=== PATIENT | male | born 1955 | race Caucasian/White ===

== ENCOUNTER 2018-09-15 08:15 | Emergency (ER) | payer BC, SELFPAY ==
[2018-09-15 08:25] VITALS: BP 154/91; PULSE 68; RESP 16; TEMP 36.7; O2SAT 95
--- NOTE | 2018-09-15 08:54 | W.ED.GENAD ---
Discharge Plan Disposition Patient Disposition: HOME Discharge Details Chief Complaint: Laceration Clinical Impression: Laceration of lower lip Primary Care Provider: Aleks Gunderson ED Provider: Casper King Home Meds and New Rx's Prescriptions: New cephalexin 500 mg tablet 500 mg PO TID Qty: 9 RF: 0 Discharge Instructions Instructions: Facial Laceration (ED) Additional Instructions: Keep wound protected. Allow mucosal sutures to dissolve. Return to the ED or see your doctor in 6 days for removal of two skin sutures. Please contact your primary care physician to arrange follow-up. Return to the ER for any worsening or new concerning symptoms. Referrals: Aleks Gunderson MD [Primary Care Provider] - Medical Decision Making 9:10 -- 63-year-old male here with laceration to his right lower lip that crosses vermilion border. Plan for primary closure after irrigation and wound exploration. Outside hospital medical records were reviewed from primary care office: tetanus is up-to-date. 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 He does note no gross contamination. Plan to cover with 3 days of cephalexin. 10:30 --wound was extensively irrigated with copious sterile saline and wound explored. Deep structures intact and no foreign body present. Patient seem to have a through and through laceration that involved the corner of right lower lip crossing the vermilion border extending into inner cheek. Laceration inside mouth was repaired with #2 absorbable sutures. The mucosal membrane of the lip was reapproximated with #4 absorbable sutures. Skin laceration was repaired with #2 prolene sutures. Wound borders reapproximated. Hemostasis achieved. Usual and customary discharge instructions were provided. HPI General Mode of arrival: ambulatory. Date/Time Provider Initiated Documentation: 09/15/18 08:46. Limitations to Documentation: no limitations. Information obtained by: patient. HPI Narrative: 63yo m with no medical problems presents with chief complaint of laceration. Patient notes that he was hammering some metal and a shard of steel metal impacted his right lower lip resulting in laceration. This occurred just prior to arrival. Laceration initially was bleeding. Bleeding is stopped. Laceration is deep. No modifiers. No associated pain. No loose teeth. He removed the entire shard that was intact. Tetanus is utd. Related Data Home Medications Medication Instructions Recorded Confirmed cephalexin 500 mg PO TID #9 tab 09/15/18 Previous Rx's Medication Instructions Recorded cephalexin 500 mg PO TID #9 tab 09/15/18 Allergies Allergy/AdvReac Type Severity Reaction Status Date / Time No Known Allergies Allergy Unverified 09/15/18 08:28 General Stated Complaint: Laceration SHERRY: 4 Review of Systems ENT Reports as per HPI Integumentary/Breasts Reports as per [facility] Social History Smoking/Tobacco Use Status: Never Exam Const General: cooperative and no acute distress HENMT Head: normocephalic and atraumatic Face and sinus: no tenderness Mouth: other (laceration to right lower lip that crosses shania border) Mouth/tongue images: 1. deep 2cm laceration Teeth and gingiva: dentition normal Eyes Conjunctivae: normal conjunctivae Sclera: normal sclerae EOM: EOM intact bilaterally Neck Neck: trachea midline and supple Skin General skin exam: no rashes or lesions noted Neuro General: alert, awake, oriented x3 and tone normal Course Vital Signs Temperature 36.7 C 09/15/18 08:25 Pulse 68 09/15/18 08:25 Respiratory Rate 16 09/15/18 08:25 Blood Pressure 154/91 H 09/15/18 08:25 Pulse Oximetry 95 09/15/18 08:25 Temperature 36.7 C 09/15/18 08:25 Temperature Source Skin 09/15/18 08:25 Pulse 68 09/15/18 08:25 Respiratory Rate 16 09/15/18 08:25 Respiratory Effort 09/15/18 08:25 Blood Pressure 154/91 H 09/15/18 08:25 Blood Pressure Position Sitting 09/15/18 08:25 Pulse Oximetry 95 09/15/18 08:25 Pain Level 1 09/15/18 08:25 Procedures Laceration Laceration 1: Site: lip Side (If applicable): right Size (cm): 2 Description: linear, irregular, clean and involves shania border Depth: simple, single layer Local Anesthetic: Bupivicaine 0.25% and with Epi Amount of anesthesia used (mL): 2 Pre-repair: wound explored, irrigated extensively and deep structures intact Skin layer closed with: vicryl (6) and other (prolene) Size (cm): 6-0 Number of sutures: 2 Technique: simple, interrupted
[2018-09-15] MEDS: Cephalexin 500 MG CAP PO (11:00)
[2018-09-15 11:20] VITALS: PULSE 77; RESP 17; TEMP 36.8
== END 2018-09-15 11:30 | disposition home or self-care (01) ==
PROVIDERS: Emergency Provider Student in an Organized Health Care Education/Training Program; PCP Internal Medicine
DX: S01.511A Laceration without foreign body of lip, initial encounter (principal); W30.89XA Contact with other specified agricultural machinery, initial encounter; Y92.71 Barn as the place of occurrence of the external cause
CPT/HCPCS: 12011

== ENCOUNTER 2018-09-21 09:37 | Emergency (ER) | payer BC, SELFPAY ==
[2018-09-21 09:40] VITALS: BP 145/79; PULSE 79; RESP 12; TEMP 36.5; O2SAT 97
--- NOTE | 2018-09-21 09:50 | ED.GENADUL_ITS ---
Discharge Plan Disposition Patient Disposition: HOME Condition: Good Discharge Details Chief Complaint: SutureRem Clinical Impression: Visit for suture removal Primary Care Provider: Aleks Gunderson ED Provider: Jose Diane Home Meds and New Rx's Prescriptions: No Action cephalexin 500 mg tablet 500 mg PO TID Qty: 9 RF: 0 Discharge Instructions Instructions: Stitches Removal (ED) Additional Instructions: If you notice any redness, discharge, fever, or splitting of the skin, please return immediately. Referrals: Aleks Gunderson MD [Primary Care Provider] - Medical Decision Making This is a 63-year-old male who presents for suture removal. He had 2 simple interrupted nylon absorbable sutures to his right lower lip. Excellent wound edge healing, good wound edge reapproximation, no evidence of discharge or redness. 2 sutures were removed without complication. Patient will be discharged home with close follow-up. I have extensively reviewed the treatment plan and discharge instructions with the patient. I have addressed all patient concerns at this time. The patient was made aware of what symptoms to monitor for that would warrant a return to the emergency department. Discussed the plan with the patient, they demonstrate verbal understanding and agreement with our assessment and plan at this time. HPI General Date/Time Provider Initiated Documentation: 09/21/18 09:40 . HPI Narrative: This is a 63-year-old male who presents for suture removal. 1 week ago a fragment of metal cut his right lower lip. He received 2 simple interrupted sutures nonabsorbable on the outside and 4 absorbable sutures on the inside. He is presented here for removal. He has had no associated redness, dehiscence, fever, chills or drainage. He has no other complaints. Related Data Home Medications Medication Instructions Recorded Confirmed cephalexin 500 mg PO TID #9 tab 09/15/18 Previous Rx's Medication Instructions Recorded cephalexin 500 mg PO TID #9 tab 09/15/18 Allergies Allergy/AdvReac Type Severity Reaction Status Date / Time No Known Allergies Allergy Unverified 09/15/18 08:28 General Stated Complaint: SutureRem SHERRY: 5 Review of Systems Review of Systems All systems reviewed & are unremarkable except as noted in HPI and below PFSH Social History Smoking/Tobacco Use Status: Never Exam Narrative Exam Narrative: 1.Const: Well-nourished, Well-developed, appearing stated age 2.Eyes: PERRL, no conjunctival injection, and symmetrical lids. 3.ENT: Atraumatic external nose and ears. Moist MM. Neck: Symmetric, trachea midline, No thyromegaly. 4.CVS: +S1/S2, No murmurs or gallops. Peripheral pulses 2+ and equal in all extremities. Brisk capillary refill in all extremities. 5.RESP: Unlabored respiratory effort. Clear to auscultation bilaterally. No wheezes rales or rhonchi 6.GI: Soft, Nontender/Nondistended, No hepatosplenomegaly. No guarding or rebound. 7.MSK: Normocephalic/Atraumatic, Extremities w/o deformity or ttp No cyanosis or clubbing, Normal movement of all extremities 8.Skin: Warm, Dry. No rashes or lesions. Patient has 2 simple interrupted sutures that are located externally on the lower lip on the right. Good wound edge reapproximation, excellent healing. The 4 absorbable sutures have fallen out and there is excellent mucosal healing 9.Neuro: home improvement advisor II-XII grossly intact. Sensation grossly intact, no focal neurologic deficits. 10.Psych: (AAO) x3. Appropriate mood and affect Course Vital Signs Temperature 36.5 C 09/21/18 09:40 Pulse 79 09/21/18 09:40 Respiratory Rate 12 09/21/18 09:40 Blood Pressure 145/79 H 09/21/18 09:40 Pulse Oximetry 97 09/21/18 09:40 Temperature 36.5 C 09/21/18 09:40 Temperature Source Temporal Artery Scan 09/21/18 09:40 Pulse 79 09/21/18 09:40 Respiratory Rate 12 09/21/18 09:40 Respiratory Effort Non-Labored 09/21/18 09:42 Blood Pressure 145/79 H 09/21/18 09:40 Blood Pressure Position Sitting 09/21/18 09:40 Pulse Oximetry 97 09/21/18 09:40 Oxygen Delivery Method Room Air 09/21/18 09:40 Oxygen Flow Rate 0 09/21/18 09:40 Pain Level 0 09/21/18 09:40
== END 2018-09-21 09:50 | disposition home or self-care (01) ==
LOC: ER 09:59
PROVIDERS: Emergency Provider Student in an Organized Health Care Education/Training Program; PCP Internal Medicine
DX: S01.511D Laceration without foreign body of lip, subsequent encounter (principal); W30.89XD Contact with other specified agricultural machinery, subsequent encounter; Z48.02 Encounter for removal of sutures

== ENCOUNTER 2019-01-15 10:42 | Outpatient (REF) | payer BC, SELFPAY ==
[2019-01-16 11:53] LABS: HSV 1 DNA Result Negative; HSV 2 DNA Result Negative
== END 2019-01-15 11:02 ==
LOC: NCHCN 10:42
PROVIDERS: PCP Specialist/Technologist Athletic Trainer; Visit Provider Specialist/Technologist Athletic Trainer
DX: L03.019 Cellulitis of unspecified finger (principal); Z11.59 Encounter for screening for other viral diseases
CPT/HCPCS: 87529; 86695; 86696

== ENCOUNTER 2020-09-20 13:52 | Outpatient (REF) | payer BC, SELFPAY ==
[2020-09-20 20:44] LABS: Calculated LDL 111 mg/dL (<100); Cholesterol 199 mg/dL (<200); HDL Cholesterol 59 mg/dL (40-60); Triglyceride 149 mg/dL (<150)
== END 2020-09-20 14:12 ==
LOC: NCHCN 13:52
PROVIDERS: PCP Specialist/Technologist Athletic Trainer; Visit Provider Nurse Practitioner Family
DX: Z00.00 Encounter for general adult medical examination without abnormal findings (principal); R05 Cough; R03.0 Elevated blood-pressure reading, without diagnosis of hypertension; Z13.220 Encounter for screening for lipoid disorders
CPT/HCPCS: 80061

== ENCOUNTER 2020-11-12 08:14 | Day surgery (SDC) | payer BC, SELFPAY ==
[2020-11-12 08:41] VITALS: BP 139/88; PULSE 65; RESP 16; TEMP 36.3; O2SAT 98
[2020-11-12] MEDS: Lactated Ringers 1,000 ML 80 ML IV (08:48)
--- NOTE | 2020-11-12 09:05 | BOWEL_PTH ---
PATIENT: Tyron Dodge LOC: [facility] U#:[id number] AGE/SX: 65/M ROOM: RE11/12/[address]: Shonna Maurer : 1955 BED: DIS: 11/12/2020 SPEC #: [id number] RECD: 11/12/20 12:25 STATUS: OSCAR RETee #: [id number] ALONZO: 11/12/20 09:[address]: Shonna Maurer DEPT: Surgical Specimen RECD BY: Jennifer Nicole ENTERED: 11/12/20 12:25 SP TYPE: Bowel OTHR DR: Aleks Gunderson Tissues: 1 - BIOPSY BOWEL Procedures: GROSS AND MICRO LEVEL 4 Comments: [id number]
--- NOTE | 2020-11-12 09:51 | W.COLOREPORT ---
Date of service: 11/12/20 Time of Service: 09:52 Colonoscopy Report Date of procedure: 11/17/20 Pre-op diagnosis general: CRC screen Post-op diagnosis procedure note: other (polyps) Surgeon: Shonna Maurer Anesthesia proc note operative: GETA Pathology: other Complications: None Disposition: same day Prep: Miralax/Dulcolax Retraction Time: 15 mins Procedure Description: After informed consent was obtained the patient was taken to the procedure room and placed in a left decubitous position. Monitors were applied and a time out was done. The patients name, date of , procedure, allergies to medications and metal in their body was reviewed. The patient was then sedated. Once sedated and comfortable a rectal exam was done. External exam was normal. Internal exam revealed a normal sphincter tone and no palpable masses. The scope was then introduced and retrofelexed. No internal hemorrhoids were identified. The scope was then advanced to the cecum w/out difficulty. The TI and appendiceal orifice were identified. The prep was good. The scope was then slowly retracted over 15 mins minutes back into the rectum. Polyps x2 were removed in rectum .75cm each. Removed w/ x2 bites of cold biter. There are no AVM's or diverticula. The scope was removed and the patient was woken up and taken back to Same day surgery in stable condition. The patient tolerated the procedure well and there were no immediate complications. Follow up: The patient should follow up in 5-7 years, path pd, unless they develop changes in bowel habits or other new gastrointestinal complaints.
[2020-11-12 09:53] VITALS: BP 134/86; PULSE 69; RESP 16; TEMP 36.2; O2SAT 99
--- NOTE | 2020-11-12 10:05 | W.PM.DSUDISC ---
Discharge Plan Disposition Patient Disposition: HOME Condition: Good Discharge Details Reason For Visit: colo Attending Provider: Shonna Maurer Primary Care Provider: Aleks Gunderson Home Meds and New Rx's Prescriptions: Discontinued polyethylene glycol 3350 17 gram/dose powder 238 g PO ONCE Qty: 238 RF: 0 bisacodyl [Dulcolax (bisacodyl)] 5 mg tablet,delayed release (DR/EC) 5 mg PO ONCE Qty: 4 RF: 0 ibuprofen 200 mg capsule 400 mg PO Q6H PRNRF: 0 Discharge Instructions Instructions: Colorectal Polyps (GEN) Additional Instructions: Findings: x2 polyps Follow up:repeat in 5-7yrs will send a letter in approx 3 wks w/ results of the patholgy and when to repeat the scope. Please call if you develop: fevers >101.5 Nausea or Vomiting Abdominal pain that is not transient DAY SURGERY UNIT POST COLONOSCOPY INSTRUCTIONS 1. Because there will be medication in your system for the next 24 hours, you may feel a little sleepy. Your coordination will be affected. Therefore: a. Do not drive or operate dangerous equipment for 24 hours. b. Do not drink alcohol beverages for 24 hours (not even beer). c. Plan to go home and rest for the day. 2. Generally there are no restrictions on your activity after a day or so has gone by, but you may feel a bit fatigued for a few days. 3 After you arrive home you may have a light meal and return to a normal diet as you can tolerate it without feeling sick to your stomach. 4. After surgery, you may feel pain or discomfort. This should be only transient, but if it persists please contact your doctor. 5. If there are any questions regarding the findings of your procedure, please feel free to contact your doctor. 6. If you are unable to contact your doctor with a problem, contact the hospital at [phone]. 7. Continue all your regular medications unless directed otherwise. I understand the above instructions and have no questions. Signature of Patient or Responsible Adult Escort Date/Time Name of Responsible Adult Escort Signature of Nurse Date/Time Activity:: No lifting over 20 pounds or strenuous activity x24 hours. Diet:: Small light meals x24 hours Discharge Orders Discharge Orders: Discharge Order (Routine); Ordered 11/12/20 Ordered By: Shonna Maurer DS: Diagnosis Discharge Diagnosis (1) Adenomatous polyps: Status: Acute
== END 2020-11-12 10:38 | disposition home or self-care (01) ==
PROVIDERS: PCP Internal Medicine; Visit Provider Surgery
PROC: 0DJD8ZZ Inspection of Lower Intestinal Tract, Via Natural or Artificial Opening Endoscopic (ICD-10-PCS; CPT 45378; principal; 2020-11-12 09:00)
DX: Z12.11 Encounter for screening for malignant neoplasm of colon (principal); K62.1 Rectal polyp
CPT/HCPCS: 45380; 88305; J2001

== ENCOUNTER 2021-05-13 14:33 | Outpatient (REF) | payer BC, SELFPAY ==
[2021-05-15 12:53] LABS: COVID-19 RT-PCR UVMMC Result Negative (Negative)
== END 2021-05-13 14:34 | disposition home or self-care (01) ==
LOC: NCHCN 14:33
PROVIDERS: PCP Internal Medicine; Visit Provider Nurse Practitioner Family
DX: Z20.822 Contact with and (suspected) exposure to COVID-19 (principal)
CPT/HCPCS: U0003

== ENCOUNTER → 2022-07-17 14:00 | Outpatient (BNVA) | payer MEDICARE, BC, SELFPAY | PROVIDERS: PCP Nurse Practitioner Family; Referring Provider Nurse Practitioner Family; Visit Provider Nurse Practitioner Adult Health | DX: G56.01 Carpal tunnel syndrome, right upper limb (principal) | CPT/HCPCS: 95908; 99203; 99213 ==

== ENCOUNTER → 2022-09-14 14:22 | Outpatient (BNVA) | payer MEDICARE, BC, SELFPAY | PROVIDERS: PCP Nurse Practitioner Family; Referring Provider Nurse Practitioner Family; Visit Provider Student in an Organized Health Care Education/Training Program | DX: G56.01 Carpal tunnel syndrome, right upper limb (principal) | CPT/HCPCS: 99213 ==

== ENCOUNTER 2022-09-20 08:54 | Day surgery (SDC) | payer MEDICARE, BC, SELFPAY ==
--- NOTE | 2022-09-20 08:20 | ANES.PREOP_ITS ---
General Info Date of Service Date Performed: 09/20/22 Height: 5 ft 8 in Weight: 74 kg Body Mass Index (BMI): 24.7 Surgical Procedure: Operation Date: 09/20/22 11:10 Proposed Procedure Side Surgeon p Wrist ECTR Right Ryland Vallecillo MD Meds Allergies and Home Medications Allergies Allergy/AdvReac Type Severity Reaction Status Date / Time fluticasone Allergy Mild Hives Verified 09/20/22 09:30 Home Medication Medication Instructions Recorded Unknown [No Known Home Meds] 07/17/22 Current Visit Medications: Current Medications Generic Name Dose Route Start Last Admin Trade Name Freq PRN Reason Stop Dose Admin Ringer's Solution 1,000 mls @ 80 mls/hr 09/20/22 06:00 IV 10/19/22 23:59 INFUSION GAVIOTA Cefazolin Sodium/Dextrose 2 gm in 50 mls @ 100 mls/hr 09/20/22 06:00 Ancef Duplex IVPB 10/19/22 23:59 PREOP GAVIOTA IV Miscellaneous Supplies 1 each 09/20/22 06:00 Iv Access IV 10/19/22 23:59 DIRECTED GAVIOTA Sodium Chloride 0 ml 09/20/22 06:00 Normal Saline Flush 10 Ml Syr IV 10/19/22 23:59 PRN PRN Sodium Chloride 0 ml 09/20/22 06:00 Normal Saline 10 Ml Vial IJ 10/19/22 23:59 DIRECTED PRN Sterile Water 0 ml 09/20/22 06:00 Water,Injection,Sterile 10 Ml Vial IJ 10/19/22 23:59 DIRECTED PRN PFSH Active Problems Active Problems: Problem Status Onset Code Right carpal tunnel syndrome G56.01 Colon polyp, hyperplastic ~10/2020 K63.5 Adenomatous polyps D36.9 Medical History Medical History Actinic keratosis Carpal tunnel syndrome Cerumen impaction Chronic cough Hip pain, right Hypertension Swelling of right ring finger Surgical History Surgical History History of carpal tunnel release left History of colonoscopy (~07/07/10) History of colonoscopy (~11/12/20) Tobacco Smoking/Tobacco Use Status: Never Alcohol Alcohol Intake: current Alcohol intake frequency: holidays/special occasions o nly Substance Use Substance use: Never Substance use type: does not use Vital Signs and Lab Results Vital Signs Most Recent Vital Signs in EMR: Temp Pulse Resp BP Pulse Ox 36.5 C 68 16 136/86 100 09/20/22 09:15 09/20/22 09:15 09/20/22 09:15 09/20/22 09:15 09/20/22 09:15 Lab Results Blood Type / Crossmatch: No Data to Display Complete Blood Count: No Data to Display Complete Metabolic Panel: No Data to Display Liver Function Panel: No Data to Display Coagulation Panel: No Data to Display Cardiac Panel: No Data to Display Arterial Blood Gas: No Data to Display Venous Blood Gas: No Data to Display Pancreas Panel: No Data to Display Thyroid Panel: No Data to Display Infectious Disease: No Data to Display Blood Cultures: No Data to Display Toxicology Panel: No Data to Display Imaging and Studies Imaging and Studies Study information below may be from another EMR and interpreted by another provider. Please see original notes in EMR for more complete details. Pulmonary Function Summary: 05/02: borderline mild obstructive dz. Anesthesia Assessment and Plan Anesthesia History Personal History: No History of Anesthesia Complications Family History: No Family History of Anesthesia Complications Exercise Tolerance Exercise Tolerance: Metabolic Equivalents>4 Cardiac & Pulmonary Exam Cardiac Exam: Normal S1/S2 Heart Sounds Pulmonary Exam: Clear Bilateral Breath Sounds Implantable Cardiac Device Does patient have a Pacemaker or an ICD?: No Airway Exam Known Difficult Airway: No Mallampati Class: 3 Mouth Opening: Normal (> 3cm) Thyromental Distance: Greater than 3 cm Facial Hair: Full Millan Neck Range of Motion: Full ROM Neck Circumference: Normal Teeth Condition: Normal Dentition ASA Classification ASA Score: ASA 2 Emergency Case?: No NPO Status NPO Status: NPO Clears >2 hours, Solids >8 hours Anesthesia Plan Resuscitation Status: Full Code Anesthesia Technique: General Anesthesia Airway Planned: Natural Airway Monitors Used: Standard Monitors Preoperative Comments:: 67 yo male for ECTR. Sig PMHx: chronic cough, HTN (just being monitored, not on medications), never smoker, occ EtOH. Previous Anes: colo with prop, no issues.
[2022-09-20 09:15] VITALS: BP 136/86; PULSE 68; RESP 16; TEMP 36.5; O2SAT 100
[2022-09-20] MEDS: Lactated Ringers 1,000 ML 80 ML IV (09:25)
[2022-09-20 10:05] VITALS: BMI 24.7
[2022-09-20] MEDS: ceFAZolin 2 GM/50 ML BAG IVPB (10:59)
--- NOTE | 2022-09-20 11:09 | W.PM.DSUDISC ---
Date of service: 09/20/22 Time of Service: 11:10 Discharge Plan Disposition Patient Disposition: Home Condition: Good Discharge Details Reason For Visit: R ECTR Attending Provider: Ryland Vallecillo Primary Care Provider: Shanelle Gonzalez Home Meds and New Rx's Prescriptions: New acetaminophen 500 mg tablet 1,000 mg PO TID Qty: 90 0RF ibuprofen 600 mg tablet 600 mg PO TID PRN (Reason: pain) Qty: 90 0RF Discharge Instructions Stand Alone Forms: Avel Serra Tunnel Release Referrals: Ryland Vallecillo MD [ [facility] STAFF PHYSICIAN] - Activity:: Activity as Tolerated Remove Dressings/Wound Care:: 48 hours Shower/Bathe:: 48 hours Diet:: As Tolerated Discharge Orders Discharge Orders: Discharge Order (Routine); Ordered 09/20/22 Ordered By: Kwan Guzman DS: Diagnosis Discharge Diagnosis (1) Right carpal tunnel syndrome: Status: Acute
[2022-09-20] MEDS: Lidocaine 1% Pres-Free W/EPI 1/200,000 10 ML VIAL (11:15)
[2022-09-20 11:20] VITALS: BP 140/81; PULSE 65; RESP 16; TEMP 36.6; O2SAT 96
--- NOTE | 2022-09-20 11:26 | ROE_ITS ---
Date of service: 09/20/22 Time of Service: 11:20 Operative Note Operative Note DATE OF PROCEDURE: 09/20/22 PRE-OP DIAGNOSIS: Right Carpal Tunnel Syndrome POST-OP DIAGNOSIS: same PROCEDURE: Right Endoscopic Carpal Tunnel Release SURGEON: Ryland Vallecillo ANESTHESIA TYPE: General:No Airway Refer to Anesthesia Record ESTIMATED BLOOD LOSS: 0 PATHOLOGY: none sent TOURNIQUET TIME: 6 COMPLICATIONS: None Patient was transported to: same day Patient's condition: stable Indications: I have seen Tyron in clinic for symptoms of carpal tunnel syndrome. The numbness, tingling, and pain limited function. Clinical exam findings with nerve conduction tests confirmed the diagnosis of carpal tunnel syndrome. Nonoperative measures such as bracing, time, activity modifications had been tried but disability and pain persisted. I discussed carpal tunnel release with the patient. I reviewed the risks of the procedure to include, but not limited to, bleeding, infection, pain, stiffness, incomplete release, damage to nerves or vessels, persistent numbness, recurrence. Despite these risks, the patient elected to proceed. Findings: There was tightened carpal tunnel. This was dilated and released successfully with the endoscopic with increased space within the tunnel. The antebrachial fascia was released proximally freeing the median nerve at the wrist. Procedure Description: Tyron was greeted in the preoperative holding area where the correct side was identified and marked. The consent was reviewed with the patient and signed. The history and physical was updated. All questions were answered. He was taken back to the operating room. The patient was placed into the supine position on the operating room table with the right arm on an arm board. A nonsterile tourniquet was placed high onto the arm. All bony prominences were well padded. Prophylactic antibiotics in the form of Cefazolin were administered. The right arm was then prepped with Chloraprep and draped in a standard fashion with stockinette and extremity drape. A timeout to confirm correct identity, side and site, procedure, allergies, anesthesia, and medical concerns was performed. The surgical site was marked in the volar wrist creases in line with the radial border of the fourth ray. This area was anesthetized with approximately 6cc of 1% Lidocaine. The limb was then exsanguinated with an Esmarch. The skin was incised with a 15 blade, approximately 1cm. The skin only was cut and the deeper tissue was dissected bluntly with a tenotomy scissor, avoiding passing nerve and venous structures. The fascia was penetrated and opened bluntly. A two-prong skin hook was placed under this proximal fascial edge. A series of hamate finders were used to identify and dilate the carpal tunnel. Synovial elevator was used to free synovial attachments to the underside of the transverse carpal ligament. My thumb was kept in the palm to clint the distal extent of the carpal tunnel and correctly position the hand. The Microaire en doscope was inserted without difficulty and without resistance. Excellent visualization showed horizontally running fibers of the transverse carpal ligament (TCL). The distal extent of the TCL was visualized and the end of the scope palpated with the thumb. The blade was elevated and withdrawn from distal to proximal. The TCL was split into two flaps. The endoscope was reinserted to confirm complete release and any remnant ligament was incised. The scope was withdrawn and the proximal aspect of the carpal tunnel was grossly inspected and appeared release with the median nerve visible. The antebrachial fascia at the level of the wrist was then freed from the overlying skin and then the underlying median nerve with blunt dissection. This was transected longitudinally for about 3cm proximal to the wrist incision. The wound was then irrigated with easy flow of irrigant distally and proximally. The incision was closed with a single 4-0 Nylon suture. The wound was dressed with Xeroform, Gauze, Kerlix and Roberto. The tourniquet was deflated with the initial dressing and held with some pressure. Blood flow returned easily to all digits with capillary refill less than 2 seconds. The patient tolerated the procedure well and was returned to the Same Day Surgery area in a stable condition suffering no known complication.
[2022-09-20 11:50] VITALS: BP 149/85; PULSE 60; RESP 16; TEMP 36.4; O2SAT 98
--- NOTE | 2022-09-20 13:17 | W.ANESPOSTOP ---
Postoperative Evaluation Date, Time and Location Date Performed: 09/20/22 Time Performed: 12:12 Patient Location: Day Surgery Unit Vital Signs Most Recent Imported Vital Signs: Most Recent Vital Signs Temp Pulse Resp BP Pulse Ox 36.4 C L 60 16 149/85 H 98 09/20/22 11:50 09/20/22 11:50 09/20/22 11:50 09/20/22 11:50 09/20/22 11:50 Pain Score Most Recent Pain Score: Most Recent Pain Score Pain Level 0 09/20/22 11:50 Assessment Mental Status: Awake (Alert & Oriented to Patient Baseline) Airway and Respiratory Function: Patent airway with normal (patient baseline) respiratory exam Cardiovascular Function: Hemodynamically Stable Hydration Status: Adequately Hydrated Nausea & Vomiting: No Nausea or Vomiting Pain: Pt. Denies Any Pain Peripheral Nerve Block: Patient did not receive a nerve block
== END 2022-09-20 12:14 | disposition home or self-care (01) ==
PROVIDERS: PCP Nurse Practitioner Family; Visit Provider Student in an Organized Health Care Education/Training Program
PROC: 01N54ZZ Release Median Nerve, Percutaneous Endoscopic Approach (ICD-10-PCS; CPT 29848; principal; 2022-09-20 11:00)
DX: G56.01 Carpal tunnel syndrome, right upper limb (principal); I10 Essential (primary) hypertension
CPT/HCPCS: 29848; J0690; J1885

== ENCOUNTER → 2022-09-29 08:22 | Outpatient (BNVA) | payer MEDICARE, BC, SELFPAY | PROVIDERS: PCP Nurse Practitioner Family; Referring Provider Nurse Practitioner Family; Visit Provider Student in an Organized Health Care Education/Training Program | DX: Z47.89 Encounter for other orthopedic aftercare (principal); G56.01 Carpal tunnel syndrome, right upper limb ==

== ENCOUNTER 2023-04-03 12:25 | Outpatient (REF) | payer MEDICARE, BC, SELFPAY ==
[2023-04-03 16:25] LABS: Calculated LDL 130 mg/dL (<100); Cholesterol 204 mg/dL (<200); HDL Cholesterol 66 mg/dL (40-60); Triglyceride 44 mg/dL (<150)
== END 2023-04-03 12:26 | disposition home or self-care (01) ==
LOC: NCHCN 12:25
PROVIDERS: PCP Nurse Practitioner Family; Visit Provider Nurse Practitioner Family
DX: I10 Essential (primary) hypertension (principal)
CPT/HCPCS: 80061

== ENCOUNTER 2023-09-04 19:53 | Outpatient (REF) | payer MEDICARE, BC, SELFPAY ==
[2023-09-04 14:55] LABS: ALT 40 U/L (16-63); AST 31 U/L (15-37); Albumin 3.9 g/dL (3.4-5.0); Alkaline Phosphatase 142 U/L (46-116); Anion Gap 7.8 mmol/L (3-11); BUN 17 mg/dL (7-18); Bilirubin, Total 0.7 mg/dL (0.2-1.0); CO2 29.2 mmol/L (21.0-32.0); CREATININE 0.8 mg/dL (0.70-1.30); Calcium 9.8 mg/dL (8.5-10.1); Calculated LDL 139 mg/dL (<100); Chloride 103 mmol/L (98-107); Cholesterol 223 mg/dL (<200); Estimated GFR 97.61 (mL/min/1.73m2); Glucose 98 mg/dL (74-106); HDL Cholesterol 72 mg/dL (40-60); Potassium 4.3 mmol/L (3.5-5.1); Sodium 140 mmol/L (136-145); Total Protein 7.6 g/dL (6.4-8.2); Triglyceride 62 mg/dL (<150)
[2023-09-06 09:44] LABS: Vitamin D 25 Total 31.3 ng/mL (30-100)
== END 2023-09-04 19:54 | disposition home or self-care (01) ==
LOC: NCHCN 19:53
PROVIDERS: PCP Nurse Practitioner Family; Visit Provider Nurse Practitioner Family
DX: I10 Essential (primary) hypertension (principal); R74.8 Abnormal levels of other serum enzymes
CPT/HCPCS: 80053; 80061; 82306

== ENCOUNTER 2024-03-05 16:56 | Outpatient (REF) | payer MEDICARE, BC, SELFPAY ==
[2024-03-05 14:38] LABS: ALT 31 U/L (16-63); AST 27 U/L (15-37); Albumin 4.1 g/dL (3.4-5.0); Alkaline Phosphatase 135 U/L (46-116); BUN 19 mg/dL (7-18); Bilirubin, Total 1.14 mg/dL (0.2-1.0); CREATININE 0.9 mg/dL (0.70-1.30); Calcium 9.3 mg/dL (8.5-10.1); Calculated LDL 114 mg/dL (<100); Chloride 103 mmol/L (98-107); Cholesterol 205 mg/dL (<200); Estimated GFR 93.61 (mL/min/1.73m2); Glucose 104 mg/dL (74-106); HDL Cholesterol 86 mg/dL (40-60); Potassium 4.2 mmol/L (3.5-5.1); Sodium 139 mmol/L (136-145); Total Protein 7.6 g/dL (6.4-8.2); Triglyceride 27 mg/dL (<150); Vitamin D 25 Total 33.4 ng/mL (30-100)
[2024-03-05 14:45] LABS: GGT 40 U/L (15-85)
== END 2024-03-05 16:57 | disposition home or self-care (01) ==
LOC: NCHCN 16:56
PROVIDERS: PCP Nurse Practitioner Family; Visit Provider Nurse Practitioner Family
DX: R74.8 Abnormal levels of other serum enzymes (principal); I10 Essential (primary) hypertension; E78.5 Hyperlipidemia, unspecified
CPT/HCPCS: 80053; 80061; 82306; 82977

== ENCOUNTER → 2024-04-18 01:07 | Outpatient (CLI) | payer MEDICARE, BC, SELFPAY ==
--- NOTE | 2024-04-18 | DI.US_ITS ---
Exam(s) US ABDOMEN LIMITED EXAM: US ABDOMEN LIMITED CLINICAL HISTORY: ALKALINE PHOSPHATASE ABOVE REFERENCE RANGE, R74.8 ABNL LEVELS SERUM ENZYMES TECHNIQUE: Ultrasound abdomen performed using standard protocol. COMPARISON: No exams were available for comparison FINDINGS: LIVER: Normal size. Normalechogenicity. No focal liver lesions are seen.. GALLBLADDER: No evidence of cholelithiasis. No evidence of wall thickening. No pericholecystic fluid identified. TSANFORD'S SIGN: Negative. BILIARY SYSTEM: No intrahepatic or extrahepatic biliary ductal dilation. RIGHT KIDNEY: Normal size. No evidence of renal calculi. No evidence of hydronephrosis. No suspicious renal mass. No cyst identified. PANCREAS: Not well visualized due to overlying bowel gas. ABDOMINAL AORTA AND IVC: Visualized portions normal caliber. ASCITES: None seen. IMPRESSION: Normal sonographic appearance of the right upper quadrant. DATA REPOSITORY:
== END ==
PROVIDERS: PCP Nurse Practitioner Family; Visit Provider Nurse Practitioner Family
DX: R74.8 Abnormal levels of other serum enzymes (principal)
CPT/HCPCS: 76705

== ENCOUNTER 2024-07-24 08:17 | Outpatient (REF) | payer MEDICARE, BC, SELFPAY ==
[2024-07-24 15:32] LABS: ALT 32 U/L (16-63); AST 33 U/L (15-37); Albumin 3.7 g/dL (3.4-5.0); Alkaline Phosphatase 142 U/L (46-116); Bilirubin, Direct 0.1 mg/dL (0.0-0.2); Bilirubin, Total 0.58 mg/dL (0.2-1.0); Total Protein 7.3 g/dL (6.4-8.2)
== END 2024-07-24 08:18 | disposition home or self-care (01) ==
LOC: NCHCN 08:17
PROVIDERS: PCP Nurse Practitioner Family; Visit Provider Nurse Practitioner Family
DX: R74.8 Abnormal levels of other serum enzymes (principal)
CPT/HCPCS: 80076

== ENCOUNTER 2025-01-27 11:42 | Outpatient (REF) | payer MEDICARE, BC, SELFPAY ==
[2025-01-27 17:54] LABS: ALT 33 U/L (16-63); AST 30 U/L (15-37); Albumin 3.8 g/dL (3.4-5.0); Alkaline Phosphatase 152 U/L (46-116); Anion Gap 6.6 mmol/L (3-11); BUN 16 mg/dL (7-18); Bilirubin, Total 0.6 mg/dL (0.2-1.0); CO2 28.4 mmol/L (21.0-32.0); CREATININE 0.8 mg/dL (0.70-1.30); Calcium 9.4 mg/dL (8.5-10.1); Chloride 106 mmol/L (98-107); GGT 32 U/L (15-85); Glucose 91 mg/dL (74-106); Potassium 4.3 mmol/L (3.5-5.1); Sodium 141 mmol/L (136-145); Total Protein 7.1 g/dL (6.4-8.2)
[2025-01-27 19:02] LABS: Calculated LDL 116 mg/dL (<100); Cholesterol 189 mg/dL (<200); HDL Cholesterol 64 mg/dL (>or=40); Triglyceride 47 mg/dL (<150); Vitamin D 25 Total 30 ng/mL (30-100)
[2025-01-27 21:43] LABS: COMMENT (LAB VIEW ONLY) 95.64 mg/dL; Microalb ug/mg Crea 7.2 ug/mg Cr
[2025-02-03 09:09] LABS: Misc Referral (MAYO) See Comments
== END 2025-01-27 11:43 | disposition home or self-care (01) ==
LOC: NCHCN 11:42
PROVIDERS: PCP Nurse Practitioner Family; Visit Provider Nurse Practitioner Family
DX: R74.8 Abnormal levels of other serum enzymes (principal); I10 Essential (primary) hypertension; E78.5 Hyperlipidemia, unspecified
CPT/HCPCS: 80053; 80061; 82306; 84075; 84080; 82043; 82570; 82977

== ENCOUNTER 2025-04-01 19:15 | Outpatient (REF) | payer MEDICARE, BC, SELFPAY ==
[2025-04-01 17:32] LABS: ALT 37 U/L (16-63); AST 33 U/L (15-37); Albumin 3.8 g/dL (3.4-5.0); Alkaline Phosphatase 153 U/L (46-116); Anion Gap 8.9 mmol/L (3-11); BUN 15 mg/dL (7-18); Bilirubin, Total 0.7 mg/dL (0.2-1.0); CO2 28.1 mmol/L (21.0-32.0); Calcium 9.2 mg/dL (8.5-10.1); Calculated LDL 88 mg/dL (<100); Chloride 104 mmol/L (98-107); Cholesterol 164 mg/dL (<200); Estimated GFR 105.15 (mL/min/1.73m2); Glucose 97 mg/dL (74-106); HDL Cholesterol 69 mg/dL (>or=40); Potassium 4.3 mmol/L (3.5-5.1); Sodium 141 mmol/L (136-145); Total Protein 7.0 g/dL (6.4-8.2); Triglyceride 37 mg/dL (<150)
== END 2025-04-01 19:16 | disposition home or self-care (01) ==
LOC: NCHCN 19:15
PROVIDERS: PCP Nurse Practitioner Family; Visit Provider Nurse Practitioner Family
DX: I10 Essential (primary) hypertension (principal); E78.5 Hyperlipidemia, unspecified
CPT/HCPCS: 80053; 80061